=== PATIENT | female | born 1970 | race Asian ===

== ENCOUNTER 2021-06-29 22:00 | Emergency (ER) | payer SELFPAY ==
[~2021-06-29] VITALS: Ht 162.6 cm; Wt 57.0 kg
[2021-06-29] MEDS ORDERED: SODIUM CHLORIDE 0.9% 1,000 ML IV ONE (22:45)
[2021-06-29 23:00] VITALS: BP 126/60
== END 2021-06-29 23:43 | disposition left against medical advice (07) ==
LOC: ER 22:00
DX: Z53.29 Procedure and treatment not carried out because of patient's decision for other reasons (principal)
CPT/HCPCS: 99283; J7030